=== PATIENT | male | born 1955 | race Caucasian/White ===

== ENCOUNTER 2019-07-20 17:11 | Emergency (ER) | payer SELFPAY ==
[~2019-07-20] VITALS: Ht 182.9 cm; Wt 104.3 kg
[2019-07-20 17:15] VITALS: BP 126/74
[2019-07-20] MEDS ORDERED: HYDR-3165 PO (18:08)
--- NOTE | 2019-07-20 18:09 | PHYS DOC ---
Adult General Chief Complaint Chief Complaint: HAND PROBLEM HPI HPI Patient is a 64-year-old male who fell at work injuring his left hand. He states the medial aspect of his hand hit the ground and he is had quite a bit of swelling since. He states the pain is mild to moderate worse when he tries to move his hand. He denies any other significant injury.[] Review of Systems Review of Systems Constitutional: Denies fever or chills [] Eyes: Denies change in visual acuity, redness, or eye pain [] HENT: Denies nasal congestion or sore throat [] Respiratory: Denies cough or shortness of breath [] Cardiovascular: No additional information not addressed in HPI [] GI: Denies abdominal pain, nausea, vomiting, bloody stools or diarrhea [] : Denies dysuria or hematuria [] Musculoskeletal: Left hand pain[] Integument: Denies rash or skin lesions [] Neurologic: Denies headache, focal weakness or sensory changes [] Endocrine: Denies polyuria or polydipsia [] All other systems were reviewed and found to be within normal limits, except as documented in this note. Allergies Allergies Allergies Coded Allergies Type Severity Reaction Last Updated Verified Penicillins Allergy Unknown 07/20/19 Yes Physical Exam Physical Exam Constitutional: Well developed, well nourished, no acute distress, non-toxic appearance. [] HENT: Normocephalic, atraumatic, bilateral external ears normal, oropharynx moist, no oral exudates, nose normal. [] Eyes: PERRLA, EOMI, conjunctiva normal, no discharge. [] Neck: Normal range of motion, no tenderness, supple, no stridor. [] Cardiovascular:Heart rate regular rhythm, no murmur [] Lungs & Thorax: Bilateral breath sounds clear to auscultation [] Abdomen: Bowel sounds normal, soft, no tenderness, no masses, no pulsatile masses. [] Skin: Warm, dry, no erythema, no rash. [] Back: No tenderness, no CVA tenderness. [] Extremities: No tenderness, no cyanosis, no clubbing, ROM intact, no edema. [] Neurologic: Alert and oriented X 3, normal motor function, normal sensory function, no focal deficits noted. [] Psychologic: Affect normal, judgement normal, mood normal. [] Current Patient Data Vital Signs Vital Signs Date Time Temp Pulse Resp B/P (MAP) Pulse Ox O2 Delivery O2 Flow Rate FiO2 07/20/19 17:11 97.9 98 22 126/74 (91) 98 Room Air EKG EKG [] Radiology/Procedures Radiology/Procedures [] Impressions: Left hand x-ray: Subtle fifth metacarpal fracture distal boxer's fracture Course & Med Decision Making Course & Med Decision Making Pertinent Labs and Imaging studies reviewed. (See chart for details) [Ulnar gutter splint was applied by the nurse I reexamined the patient after the splint was applied and patient remained neurovascularly intact. I did let the patient noted that I did not have an official radiologic reading on the x-ray and the findings were subtle so he would need to follow-up with orthopedic surgeon as an outpatient.] Dragon Disclaimer Dragon Disclaimer This electronic medical record was generated, in whole or in part, using a voice recognition dictation system. Departure Departure: Impression: Primary Impression: Fracture of fifth metacarpal bone Disposition: HOME, SELF-CARE Condition: STABLE Referrals: PCP,NO (PCP) Patient Instructions: Hand Fracture, Fifth Metacarpal Additional Instructions: Follow with Dr. Covarrubias next week for recheck. Wear your splint until seen by the orthopedic surgeon. Scripts Hydrocodone Bit/Acetaminophen (NORCO 5-325 TABLET) 1 Each Tablet 1-2 TAB PO Q4-6HRS for PAIN, #12 TAB Prov: DRU BETHEA DO 07/20/19 Problem Qualifiers Primary Impression: Fracture of fifth metacarpal bone Encounter type: initial encounter Fracture type: closed Metacarpal location: shaft Fracture alignment: nondisplaced Laterality: left Qualified Codes: S62.357A - Nondisplaced fracture of shaft of fifth metacarpal bone, left hand, initial encounter for closed fracture DRU BETHEA DO Jul 20, 2019 18:09
--- NOTE | 2019-07-20 18:49 | RAD ---
Exam: Left hand 3 views INDICATION: Injury TECHNIQUE: Frontal, lateral and oblique views of the left hand Comparisons: None FINDINGS: There is a mildly displaced fracture at the distal diaphysis of the fifth metacarpal. Diffuse soft tissue swelling along the dorsal aspect of the palm. No other fractures are identified. Joint spaces are well-maintained. Bone mineralization is normal. IMPRESSION: Mildly displaced fracture at the distal diaphysis of the fifth metacarpal. Electronically signed by: Ha Max MD (07/20/2019 6:46 PM) [facility]
--- NOTE | 2019-07-20 18:50 | RAD ---
Exam: Left forearm 2 views INDICATION: Injury TECHNIQUE: Frontal and lateral views of the left forearm Comparisons: None FINDINGS: Bone mineralization is normal. No acute or healed fractures. Soft tissues are unremarkable. Joint spaces are well-maintained. IMPRESSION: No acute osseous abnormality. Electronically signed by: Ha Max MD (07/20/2019 6:47 PM) [facility]
== END 2019-07-20 18:25 | disposition home or self-care (01) ==
LOC: ER 17:11
DX: S62.357A Nondisplaced fracture of shaft of fifth metacarpal bone, left hand, initial encounter for closed fracture (principal); W22.8XXA Striking against or struck by other objects, initial encounter; Y93.89 Activity, other specified; Y92.89 Other specified places as the place of occurrence of the external cause; Y99.8 Other external cause status; Z88.0 Allergy status to penicillin
CPT/HCPCS: 29125; 73090; 73130; 99284